=== PATIENT | male | born 1970 | race Caucasian/White ===

== ENCOUNTER 2018-01-30 11:14 | Emergency (ER) | payer OTHER ==
[~2018-01-30] VITALS: Ht 188 cm; Wt 87.0 kg
[2018-01-30 11:20] VITALS: BP 174/101; PULSE 71; RESP 16; TEMP 97.7; O2SAT 98
--- NOTE | 2018-01-30 11:44 | PD ---
HPI Chief Complaint: Musculoskeletal Complaint Time Seen by Provider: 11:32 Travel History International Travel<30 days: No Contact w/Intl Traveler<30days: No Traveled to known affect area: No History of Present Illness HPI This 47-year-old male presents with complaint of mass in left side of his chest. He has noticed this over a year ago when it apparently has become more prominent. He has developed some weakness in the left arm. When he bends his head forward he gets some paresthesias. There has not been any fever or chills. He has no cough or shortness of breath. His friend there was a physician has noticed that he has a lump medial to the scapula and is concerned that this may be contributing to his arm weakness. There is no history of trauma. He gets paresthesias in the arm. He has been having pain and is been favoring the arm PFS Past Medical History Medical History: Denies Significant Hx Diminished Hearing: No Influenza Vaccination: No ?: Not Past Surgical History Surgical History: No Previous Surgery Social History Alcohol Use: Yes Tobacco Use: No Allergies-Medications (Allergen,Severity, Reaction): Coded Allergies: No Known Allergies (Unverified , 01/30/18) Reported Meds & Prescriptions Reported Meds & Active Scripts Active No Active Prescriptions or Reported Medications Review of Systems General / Constitutional: No: Fever, Chills Eyes: No: Diploplia HENT: No: Headaches, Vertigo Cardiovascular: No: Chest Pain or Discomfort Respiratory: No: Cough, Shortness of Breath Gastrointestinal: No: Vomiting Genitourinary: No: Urgency, Frequency Musculoskeletal: Positive: Pain, No: Myalgias Skin: No Rash Physical Exam Narrative GENERAL: Well-developed male SKIN: Focused skin assessment warm/dry. HEAD: Atraumatic. Normocephalic. EYES: Pupils equal and round. No scleral icterus. No injection or drainage. ENT: No nasal bleeding or discharge. Mucous membranes pink and moist. NECK: Trachea midline. No JVD. CARDIOVASCULAR: Regular rate and rhythm. No murmur appreciated. Examining the posterior chest wall there is a soft tissue mass felt just medial to the spine of the scapula. There appears to be some atrophy of the soft tissue lateral to this. RESPIRATORY: No accessory muscle use. Clear to auscultation. Breath sounds equal bilaterally. GASTROINTESTINAL: Abdomen soft, non-tender, nondistended. Hepatic and splenic margins not palpable. MUSCULOSKELETAL: No obvious deformities. No clubbing. No cyanosis. No edema. NEUROLOGICAL: Awake and alert. No obvious cranial nerve deficits. Motor grossly within normal limits. Normal speech. There is some weakness on internal rotation of the shoulder. Gross strength appears intact PSYCHIATRIC: Appropriate mood and affect; insight and judgment normal. Data Data Last Documented VS Vital Signs Date Time Temp Pulse Resp B/P (MAP) Pulse Ox O2 Delivery O2 Flow Rate FiO2 01/30/18 14:33 01/30/18 13:57 71 18 100 Room Air 01/30/18 11:20 97.7 Orders Orders Complete Blood Count With Diff (01/30/18 11:36) Basic Metabolic Panel (Bmp) (01/30/18 11:36) Mri Scapula W&W/O Contrast (01/30/18 ) Gadodiamide Pf Inj (Omniscan Pf Inj) (01/30/18 12:30) Ed Discharge Order (01/30/18 14:30) Labs Laboratory Tests Test 01/30/18 11:45 White Blood Count 6.5 TH/MM3 Red Blood Count 5.32 MIL/MM3 Hemoglobin 15.8 GM/DL Hematocrit 46.4 % Mean Corpuscular Volume 87.2 FL Mean Corpuscular Hemoglobin 29.8 PG Mean Corpuscular Hemoglobin Concent 34.1 % Red Cell Distribution Width 12.3 % Platelet Count 247 TH/MM3 Mean Platelet Volume 7.6 FL Neutrophils (%) (Auto) 70.5 % Lymphocytes (%) (Auto) 19.5 % Monocytes (%) (Auto) 7.8 % Eosinophils (%) (Auto) 1.1 % Basophils (%) (Auto) 1.1 % Neutrophils # (Auto) 4.5 TH/MM3 Lymphocytes # (Auto) 1.3 TH/MM3 Monocytes # (Auto) 0.5 TH/MM3 Eosinophils # (Auto) 0.1 TH/MM3 Basophils # (Auto) 0.1 TH/MM3 CBC Comment DIFF FINAL Differential Comment Blood Urea Nitrogen 12 MG/DL Creatinine 0.99 MG/DL Random Glucose 87 MG/DL Calcium Level 8.8 MG/DL Sodium Level 138 MEQ/L Potassium Level 4.1 MEQ/L Chloride Level 103 MEQ/L Carbon Dioxide Level 27.7 MEQ/L Anion Gap 7 MEQ/L Estimat Glomerular Filtration Rate 81 ML/MIN MDM Medical Decision Making Medical Screen Exam Complete: Yes Emergency Medical Condition: Yes Medical Record Reviewed: Yes Differential Diagnosis Differential includes radiculopathy, mass Narrative Course An MRI was done to assess whether this palpable area adjacent to the scapula is a mass penetrating and causing weakness. The MRI suggests that this is a lipoma. Patient will follow up with Dr. Chang regarding the arm weakness Diagnosis Primary Impression: Left arm weakness Additional Impression: Lipoma Referrals: Clayton Chang MD PhD Scripts No Active Prescriptions or Reported Meds Disposition: 01 DISCHARGE HOME Condition: Stable Terrance Trinh MD Jan 30, 2018 11:44
[2018-01-30 11:52] LABS: AUTOMATED NEUTROPHIL # 4.5 TH/MM3 (1.8-7.7); BASOPHIL # 0.1 TH/MM3 (0-0.2); BASOPHIL % 1.1 % (0.0-2.0); EOSINOPHIL # 0.1 TH/MM3 (0-0.4); EOSINOPHIL % 1.1 % (0.0-4.0); HEMATOCRIT 46.4 % (39.0-51.0); HEMOGLOBIN 15.8 GM/DL (13.0-17.0); LYMPH % 19.5 % (9.0-44.0); LYMPHOCYTE # 1.3 TH/MM3 (1.0-4.8); MEAN CELL VOLUME 87.2 FL (80.0-100.0); MEAN CORPUSCULAR HEMOGLOBIN 29.8 PG (27.0-34.0); MEAN CORPUSCULAR HGB CONC 34.1 % (32.0-36.0); MEAN PLATELET VOLUME 7.6 FL (7.0-11.0); MONO % 7.8 % (0.0-8.0); MONOCYTE # 0.5 TH/MM3 (0-0.9); NEUT % 70.5 % (16.0-70.0); PLATELET COUNT 247 TH/MM3 (150-450); RED BLOOD COUNT 5.32 MIL/MM3 (4.50-5.90); RED CELL DISTRIBUTION WIDTH 12.3 % (11.6-17.2); WHITE BLOOD COUNT 6.5 TH/MM3 (4.0-11.0)
[2018-01-30 12:08] LABS: CALCIUM 8.8 MG/DL (8.5-10.1)
[2018-01-30 12:09] LABS: BICARBONATE 27.7 MEQ/L (21.0-32.0)
[2018-01-30 12:12] LABS: CREATININE 0.99 MG/DL (0.60-1.30)
[2018-01-30] MEDS ORDERED: GADODIAMIDE PF 287 MG/ML 20 ML VIAL (for RAD MRI) IV PUSH ONE (12:30)
[2018-01-30 13:57] VITALS: BP 153/92; PULSE 71; RESP 18; O2SAT 100
--- NOTE | 2018-01-30 14:20 | RADRPT ---
EXAM DATE: 01/30/2018 1:55 PM EDT AGE/SEX: 47 years / Male INDICATIONS: Mass CLINICAL DATA: This is the patient's initial encounter. Patient reports that signs and symptoms have been present for 2 weeks and indicates a pain score of 0/10. MEDICAL/SURGICAL HISTORY: None. None. COMPARISON: No prior exams available for comparison. TECHNIQUE: Multiplanar, multisequence MRI examination was performed without and with ml Omniscan (ga dodiamide) contrast as single exam dose. FINDINGS: An external marker was placed along the left upper back just inferior to the base of the neck. Unenhanced and enhanced evaluation demonstrates the presence of a subcutaneous lipoma measuring 1.6 x 3.3 x 3.1 cm in size. There is no evidence of abnormal enhancement. Margins are very thin and well-c ircumscribed. Bony and soft tissue structures are otherwise unremarkable. CONCLUSION: Left upper medial back soft tissue mass is compatible with a simple lipoma. Electronically signed by: Ian Celeste MD 01/30/2018 2:18 PM EDT
== END 2018-01-30 14:34 | disposition home or self-care (01) ==
LOC: PHED 11:14
DX: R53.1 Weakness (principal); D17.1 Benign lipomatous neoplasm of skin and subcutaneous tissue of trunk; R20.2 Paresthesia of skin
CPT/HCPCS: 73220; 80048; 85025; 99284; A9579